=== PATIENT | female | born 1960 | race Caucasian/White ===

== ENCOUNTER 2016-05-20 20:15 | Emergency (ER) | payer BC, OTHER ==
[~2016-05-20] VITALS: Ht 157.5 cm; Wt 83.1 kg
[~2016-05-20 20:15] MED LIST: CALC500T42 PO; FEXO60TA PO; METHTAB PO; MULT-65 PO; PREV15CA20 PO; TIMO0.2525 EACH EYE
[2016-05-20 20:21] VITALS: BP 151/89; PULSE 76; RESP 16; TEMP 97.8; O2SAT 99
[2016-05-20] MEDS ORDERED: METHTAB (21:18)
[2016-05-20] MEDS ORDERED: PREV15CA15 PO (21:18)
[2016-05-20] MEDS ORDERED: TIMO5SOL EACH EYE (21:18)
[2016-05-20] MEDS ORDERED: ALLE60TA PO (21:18)
[2016-05-20] MEDS ORDERED: DOXY100C PO (22:10)
[2016-05-20] MEDS ORDERED: POLY10O EACH EYE (22:10)
--- NOTE | 2016-05-20 22:12 | PD ---
HPI Chief Complaint: Eye Problems/Injury Time Seen by Provider: 22:07 Travel History International Travel<30 days: No Contact w/Intl Traveler<30days: No Traveled to known affect area: No History of Present Illness HPI 55-year-old female presents to the emergency Department with complaint of sinus congestion 10 days and onset of purulent drainage from her left eye a few days ago. Reports facial pressure. Woke a couple days ago with her eye purulent drainage in her left eye. Denies trauma to the eyes. Denies change in vision. Eyes feel irritated but not painful. Yolanda had conjunctivitis one month ago. Woke up this morning with some drainage coming from her right eye which has worsened throughout the day today. Denies fever, chills, nausea, vomiting. Has tried [id number] medications with no relief. He thought it was maybe allergies thinks she has a sinus infection. Denies cough, ear pain. Denies sore throat. Denies chest pain, shortness of breath, abdominal pain. No one else with similar symptoms at this time. No known relieving or aggravating factors. Allergies to erythromycin and penicillin. No other modifying factors or associated signs and symptoms. PFSH Past Medical History Cancer: Yes (OVARIAN) Diminished Hearing: No GERD: Yes Glaucoma: Yes Hiatal Hernia: Yes Immunizations Current: Yes Tetanus Vaccination: > 5 Years Influenza Vaccination: Yes ?: Not Menopausal: Yes Past Surgical History Appendectomy: Yes Cholecystectomy: Yes Hysterectomy: Yes Social History Alcohol Use: No Tobacco Use: No Substance Use: No Allergies-Medications (Allergen,Severity, Reaction): Coded Allergies: Erythromycin (Verified Allergy, Intermediate, RASH, 05/20/16) Penicillin (Verified Allergy, Intermediate, RASH, 05/20/16) Reported Meds & Prescriptions Reported Meds & Active Scripts Active Doxycycline Hyclate 100 Mg Cap 100 Mg PO BID 10 Days Polytrim Opth Drops (Polymyxin/Trimethoprim Sulfate) 10,000-0.1 Unit/Ml-% Soln 1 -2 Drop EACH EYE Q6HR 7 Days Reported Timolol Opth Drops 0.25 % Soln 1 Drop EACH EYE DAILY Prevacid (Lansoprazole) 15 Mg Capdr 15 Mg PO DAILY Lulu Allergy (Fexofenadine HCl) 60 Mg Tab 60 Mg PO BID [Estratest] Review of Systems Except as stated in HPI: all other systems reviewed are Neg Physical Exam Narrative GENERAL: Well-nourished, well-developed female patient, in no acute distress SKIN: Warm and dry. HEAD: Atraumatic. Normocephalic. Tenderness on palpation to the frontal and maxillary sinuses. EYES: Pupils equal and round at 3 mm with brisk reaction. PERRLA. EOMI. Bilateral lid eversion with no foreign body noted. Bilateral eye with mild scleral erythema and mild lid edema. No orbital tenderness, erythema or cellulitis. Bilateral eye without photophobia. No consensual photophobia. No scleral icterus. Yellowish/white green drainage to bilateral eyes; left greater than right. ENT: Mucosa pink and moist. No erythema or exudates. No uvular edema. No uvular , palatal, or tonsillar deviation. Airway patent. Nasal turbinates appear normal without nasal blood, purulent drainage or septal hematoma. EARS: Bilateral pinnae and external canals appear within normal limits. Bilateral tympanic membranes without erythema, dullness or perforation. NECK: Trachea midline. No lymphadenopathy. CARDIOVASCULAR: Regular rate and rhythm. No murmur appreciated. RESPIRATORY: No accessory muscle use. Breath sounds clear and equal bilaterally. GASTROINTESTINAL: Abdomen soft, non-tender, nondistended. Positive bowel sounds. No hepato-splenomegaly, or palpable masses. No guarding. NEUROLOGICAL: Awake and alert. Oriented 3. No obvious cranial nerve deficits. Motor grossly within normal limits. Normal speech. PSYCHIATRIC: Appropriate mood and affect; insight and judgment normal. Data Data Last Documented VS Vital Signs Date Time Temp Pulse Resp B/P Pulse Ox O2 Delivery O2 Flow Rate FiO2 05/20/16 20:21 97.8 76 16 151/89 99 Room Air MDM Medical Decision Making Medical Screen Exam Complete: Yes Emergency Medical Condition: Yes Medical Record Reviewed: Yes Differential Diagnosis Sinusitis, conjunctivitis, upper respiratory infection, allergies Narrative Course 55-year-old female physical examination consistent with bilateral conjunctivitis and sinusitis. Patient is afebrile and nontoxic-appearing. Vital signs stable. Polytrim eyedrops and doxycycline prescribed for home. Patient is medically cleared and stable for discharge. Discussed reasons to return to the emergency department. Instructed patient to follow up with primary care provider. Patient agrees with treatment plan. The patients vital signs are stable and the patient is stable for outpatient follow-up and treatment. Patient discharged home, stable and in no acute distress. Diagnosis Primary Impression: Bilateral conjunctivitis Qualified Code: H10.9 - Conjunctivitis of both eyes, unspecified conjunctivitis type Additional Impression: Sinusitis Qualified Code: J01.90 - Acute sinusitis, recurrence not specified, unspecified location Referrals: Primary Care Physician Patient Instructions: Conjunctivitis (ED), General Instructions, Sinusitis (ED) Additional Instructions: Conjunctivitis is contagious Use antibiotic drops as prescribed Oral antibiotics as prescribed for sinus infection Apply warm or cool compresses to both eyes for a few minutes several times daily to minimize irritation Avoid triggers, such as allergens, that may irritate your eyes Wash your hands frequently Do not share washcloths, towels, pillows, or any other material that has touched your eyes with any other household members Follow-up with your primary care provider Return to the emergency department immediately with worsening of symptoms Med/Other Pt SpecificInfo: Prescription(s) given Scripts Doxycycline Hyclate 100 Mg [id number] Mg PO BID 10 Days Ref 0 Prov:Carmen Melton 05/20/16 Polymyxin B-Trimethoprim Opth Drops (Polytrim Opth Drops)10,000-0.1 Unit/Ml-% Soln1-2 Drop EACH EYE Q6HR 7 Days Ref 0 Prov:Carmen Melton 05/20/16 Disposition: 01 DISCHARGE HOME Condition: Stable Carmen Melton May 20, 2016 22:12
== END 2016-05-20 22:18 | disposition home or self-care (01) ==
LOC: PHED 20:15 → PHEFT 22:18
DX: H10.89 Other conjunctivitis (principal); J32.9 Chronic sinusitis, unspecified
CPT/HCPCS: 99283

== ENCOUNTER 2016-10-25 17:26 | Emergency (ER) | payer OTHER ==
[~2016-10-25] VITALS: Ht 157.5 cm; Wt 84.0 kg
[~2016-10-25 17:26] MED LIST changes: +ALLE60TA PO; -CALC500T42 PO; +DOXY100C PO; -FEXO60TA PO; +METHTAB; -METHTAB PO; -MULT-65 PO; +POLY10O EACH EYE; +PREV15CA15 PO; -PREV15CA20 PO; -TIMO0.2525 EACH EYE; +TIMO5SOL EACH EYE
[2016-10-25 17:32] VITALS: BP 159/77; PULSE 79; RESP 16; TEMP 98.2; O2SAT 99
[2016-10-25] MEDS ORDERED: TIMO0.5S30 EACH EYE (17:50)
[2016-10-25] MEDS ORDERED: METHTAB (17:50)
[2016-10-25] MEDS ORDERED: SODIUM CHLORIDE 0.9% FLUSH 10 ML FLUSH IV FLUSH PRN (18:15)
--- NOTE | 2016-10-25 18:29 | PD ---
HPI Chief Complaint: Abdominal Pain Time Seen by Provider: 18:00 Travel History International Travel<30 days: No Contact w/Intl Traveler<30days: No Traveled to known affect area: No History of Present Illness HPI 56-year-old female presents emergency department with chief complaint of right upper quadrant pain one day. Patient reports that over the last 24 hours the pain has become increasingly more constant. Localized to the right upper quadrant. Associated with mild nausea. Reproducible with palpation. She denies fever, chest pain, shortness of breath, vomiting/diarrhea. She reports that the pain "comes and goes" lasting several hours at a time. She reports she also felt "clammy" today. She reports multiple sick contacts at work have "GI bug". [facility] Past Medical History Narrative Medical Significant for GERD, ovarian CA (2000) total hysterectomy, Hx Anticoagulant Therapy: No Cancer: Yes (OVARIAN) Diabetes: No Diminished Hearing: No GERD: Yes Glaucoma: Yes Hiatal Hernia: Yes Immunizations Current: Yes Influenza Vaccination: No ?: Not Menopausal: Yes Past Surgical History Appendectomy: Yes Cholecystectomy: Yes Hysterectomy: Yes Social History Alcohol Use: No Tobacco Use: No Substance Use: No Allergies-Medications (Allergen,Severity, Reaction): Coded Allergies: Erythromycin (Verified Allergy, Intermediate, RASH, 10/25/16) Penicillin (Verified Allergy, Intermediate, RASH, 10/25/16) Reported Meds & Prescriptions Reported Meds & Active Scripts Active Reported Timolol Opth Drops 0.5 % Soln 1 Drop EACH EYE DAILY [Estratest] Prevacid (Lansoprazole) 15 Mg Capdr 15 Mg PO DAILY Lulu Allergy (Fexofenadine HCl) 60 Mg Tab 60 Mg PO BID Physical Exam Narrative GENERAL: Alert, well-appearing female, nontoxic SKIN: Focused skin assessment warm/dry. HEAD: Atraumatic. Normocephalic. EYES: Pupils equal and round. No scleral icterus. No injection or drainage. ENT: No nasal bleeding or discharge. Mucous membranes pink and moist. NECK: Trachea midline. No JVD. CARDIOVASCULAR: Regular rate and rhythm. No murmur appreciated. RESPIRATORY: No accessory muscle use. Clear to auscultation. Breath sounds equal bilaterally. GASTROINTESTINAL: Abdomen soft, mild tenderness in the right upper quadrant, nondistended, no rebound, no guarding. Hepatic and splenic margins not palpable. MUSCULOSKELETAL: No obvious deformities. No clubbing. No cyanosis. No edema. NEUROLOGICAL: Awake and alert. No obvious cranial nerve deficits. Motor grossly within normal limits. Normal speech. PSYCHIATRIC: Appropriate mood and affect; insight and judgment normal. Data Data Last Documented VS Vital Signs Date Time Temp Pulse Resp B/P Pulse Ox O2 Delivery O2 Flow Rate FiO2 10/25/16 17:32 98.2 79 16 159/77 99 Orders Complete Blood Count With Diff (10/25/16 18:09) Comprehensive Metabolic Panel (10/25/16 18:09) Lipase (10/25/16 18:09) Urinalysis - C+S If Indicated (10/25/16 18:09) Iv Access Insert/Monitor (10/25/16 18:09) Sodium Chloride 0.9% Flush (Ns Flush) (10/25/16 18:15) Electrocardiogram (10/25/16 18:09) Troponin I (10/25/16 18:09) Famotidine Inj (Pepcid Inj) (10/25/16 19:30) Al-Mag Hy-Si 40-40-4 Mg/Ml Liq (Mag-Al P (10/25/16 19:30) Lidocaine 2% Viscous (Xylocaine 2% Visco (10/25/16 19:30) Labs Laboratory Tests Test 10/25/16 10/25/16 18:15 18:30 Urine Color STRAW Urine Turbidity CLEAR Urine pH 6.5 Urine Specific [place] 1.004 Urine Protein NEG mg/dL Urine Glucose (UA) NEG mg/dL Urine Ketones NEG mg/dL Urine Occult Blood SMALL Urine Nitrite NEG Urine Bilirubin NEG Urine Leukocyte Esterase TRACE Urine RBC 0-3 /hpf Urine WBC 0-2 /hpf Urine Squamous Epithelial 0-5 /hpf Cells Microscopic Urinalysis Comment CULT NOT INDICATED White Blood Count 6.3 TH/MM3 Red Blood Count 4.73 MIL/MM3 Hemoglobin 13.5 GM/DL Hematocrit 40.0 % Mean Corpuscular Volume 84.6 FL Mean Corpuscular Hemoglobin 28.6 PG Mean Corpuscular Hemoglobin 33.8 % Concent Red Cell Distribution Width 13.3 % Platelet Count 355 TH/MM3 Mean Platelet Volume 7.6 FL Neutrophils (%) (Auto) 59.1 % Lymphocytes (%) (Auto) 30.6 % Monocytes (%) (Auto) 7.4 % Eosinophils (%) (Auto) 2.3 % Basophils (%) (Auto) 0.6 % Neutrophils # (Auto) 3.8 TH/MM3 Lymphocytes # (Auto) 1.9 TH/MM3 Monocytes # (Auto) 0.5 TH/MM3 Eosinophils # (Auto) 0.1 TH/MM3 Basophils # (Auto) 0.0 TH/MM3 CBC Comment DIFF FINAL Differential Comment Sodium Level 142 MEQ/L Potassium Level 3.7 MEQ/L Chloride Level 106 MEQ/L Carbon Dioxide Level 30.9 MEQ/L Anion Gap 5 MEQ/L Blood Urea Nitrogen 8 MG/DL Creatinine 0.84 MG/DL Estimat Glomerular Filtration 70 ML/MIN Rate Random Glucose 85 MG/DL Calcium Level 8.7 MG/DL Total Bilirubin 0.5 MG/DL Aspartate Amino Transf 20 U/L (AST/SGOT) Alanine Aminotransferase 33 U/L (ALT/SGPT) Alkaline Phosphatase 111 U/L Troponin I LESS THAN 0.02 NG/ML Total Protein 7.8 GM/DL Albumin 4.0 GM/DL Lipase 183 U/L [facility] Medical Decision Making Medical Screen Exam Complete: Yes Emergency Medical Condition: Yes Medical Record Reviewed: Yes Differential Diagnosis Gastritis, gastroenteritis, GERD, hepatitis Narrative Course 56-year-old female presents emergency department for right upper quadrant pain 1 day. Patient reports the pain has become increasingly more frequent over the last 24 hours and is now associated with mild nausea and one episode of diarrhea. The pain is reproducible to palpation to the right upper quadrant. The abdomen is soft no guarding no rebound tenderness. IV access established, labs pending, EKG obtained. EKG: Sinus rhythm no ST or T-wave changes. CBC: Unremarkable CMP: Unremarkable During the course of patients stay in emergency department she had one episodes of diarrhea. Her labs are unremarkable. Patient is nontoxic appearing. Given her exposure to coworkers with similar GI complaints this is consistent with gastroenteritis. 1934 patient reassessed, all diagnostics test reviewed with patient. Patient reports improvement. Patient has no pain currently. Abdomen soft. She agrees to follow up with her primary doctor in 2 days for recheck. Return precautions discussed. Patient is in agreement to plan and ready for discharge. Diagnosis Primary Impression: Acute gastroenteritis Referrals: Primary Care Physician Patient Instructions: Gastroenteritis (ED), General Instructions Additional Instructions: Eat a bland diet and drink plenty of fluids. Follow up with your primary doctor in 2 days. Return to the emergency department he develop new or worsening symptoms. Disposition: 01 DISCHARGE HOME Condition: Stable Hodan Foy Oct 25, 2016 18:29
[2016-10-25 18:30] LABS: BLOOD, URINE SMALL (NEG); GLUCOSE,URINE NEG (NEG); KETONE, URINE NEG (NEG); NITRITE,URINE NEG (NEG); PH, URINE 6.5 (5.0-8.5)
[2016-10-25 18:36] LABS: RBC, URINE 0-3 /hpf (0-3); URINE COLOR STRAW (YELLW/STRAW); WBC, URINE 0-2 /hpf (0-5)
[2016-10-25 18:37] LABS: COMMENT (UR) CULT NOT INDICATED; CULTURE IF INDICATED CULT NOT INDICATED; SQUAMOUS EPITHELIAL CELL URINE 0-5 /hpf (0-5)
[2016-10-25 18:47] LABS: AUTOMATED NEUTROPHIL # 3.8 TH/MM3 (1.8-7.7); BASOPHIL % 0.6 % (0.0-2.0); EOSINOPHIL # 0.1 TH/MM3 (0-0.4); EOSINOPHIL % 2.3 % (0.0-4.0); LYMPH % 30.6 % (9.0-44.0); LYMPHOCYTE # 1.9 TH/MM3 (1.0-4.8); MEAN CELL VOLUME 84.6 FL (80.0-100.0); MEAN CORPUSCULAR HEMOGLOBIN 28.6 PG (27.0-34.0); MEAN CORPUSCULAR HGB CONC 33.8 % (32.0-36.0); MONO % 7.4 % (0.0-8.0); NEUT % 59.1 % (16.0-70.0); PLATELET COUNT 355 TH/MM3 (150-450); RED BLOOD COUNT 4.73 MIL/MM3 (4.00-5.30); RED CELL DISTRIBUTION WIDTH 13.3 % (11.6-17.2); WHITE BLOOD COUNT 6.3 TH/MM3 (4.0-11.0)
[2016-10-25 18:49] LABS: HEMO FLAGS DIFF FINAL
[2016-10-25 18:58] LABS: CHLORIDE 106 MEQ/L (98-107); POTASSIUM 3.7 MEQ/L (3.5-5.1); SODIUM (NA) 142 MEQ/L (136-145)
[2016-10-25 19:02] LABS: ANION GAP 5 MEQ/L (5-15); BICARBONATE 30.9 MEQ/L (21.0-32.0); BLOOD UREA NITROGEN 8 MG/DL (7-18)
[2016-10-25 19:05] LABS: ALT (GPT) 33 U/L (10-53); AST (GOT) 20 U/L (15-37); GLOMERULAR FILTRATION RATE 70 ML/MIN (>89)
[2016-10-25 19:06] LABS: TOTAL BILIRUBIN ADULT 0.5 MG/DL (0.2-1.0)
[2016-10-25 19:08] LABS: ALKALINE PHOSPHATASE 111 U/L (45-117)
[2016-10-25] MEDS ORDERED: ALUMINUM/MAGNESIUM/SIMETH 30 ML CUP PO ONE (19:30)
[2016-10-25] MEDS ORDERED: LIDOCAINE VISCOUS 2% SOLN 15 ML UDC PO ONE (19:30)
[2016-10-25] MEDS ORDERED: FAMOTIDINE 20 MG/2 ML VIAL IV PUSH ONE (19:30)
--- NOTE | 2016-10-26 17:45 | EKG ---
Date Performed: 10/25/2016 Time Performed: 18:32:46 PTAGE: 56 years EKG: Sinus rhythm with 1st degree A-V block Poor R wave progression - probable normal variant Abnormal ECG NO PREVIOUS TRACING DOCTOR: Fili Jones Interpretating Date/Time 10/26/2016 17:44:23
== END 2016-10-25 20:07 | disposition home or self-care (01) ==
LOC: PHEFT 17:26
DX: K52.9 Noninfective gastroenteritis and colitis, unspecified (principal)
CPT/HCPCS: 80053; 81001; 83690; 84484; 85025; 93005; 96374

== ENCOUNTER 2016-10-26 11:41 | Emergency (ER) | payer OTHER ==
[~2016-10-26] VITALS: Ht 157.5 cm; Wt 83.0 kg
[~2016-10-26 11:41] MED LIST changes: -DOXY100C PO; -POLY10O EACH EYE; +TIMO0.5S30 EACH EYE; -TIMO5SOL EACH EYE
[2016-10-26 11:46] VITALS: BP 177/93; PULSE 70; RESP 16; TEMP 98.2; O2SAT 99
[2016-10-26] MEDS ORDERED: KETOROLAC TROMETHAMINE 30 MG/ML (IVP) VIAL IM ONE (12:15)
--- NOTE | 2016-10-26 12:54 | PD ---
HPI Chief Complaint: Abdominal Pain Time Seen by Provider: 11:55 Travel History International Travel<30 days: No Contact w/Intl Traveler<30days: No Traveled to known affect area: No History of Present Illness HPI 56-year-old female presents the emergency department after repeat ED visit yesterday for persistent abdominal pain. Patient seen in our emergency department yesterday with complaints of right sided abdominal pain, primarily right upper quadrant. She had some associated nausea, loose stools with multiple sick contacts at work with similar symptoms. She's had a previous CRISTIAN/ BSO due to ovarian cancer in her 30s, appendectomy and cholecystectomy. Her laboratory workup yesterday was unremarkable and patient felt improved after GI cocktail. Presumptive GERD versus reflux versus gastroenteritis and patient was discharged home. Patient notes that she's had persistent right sided abdominal pain and presents to the emergency department today for concerns primarily regarding recurrent ovarian cancer. Patient states that yesterday during her ED visit she discussed CT scan of the abdomen and pelvis with provider but ultimately decided not to have this performed due to radiation risks. Given her persistent symptoms today patient presents back to the emergency department requesting CT scan, where she may have recurrent ovarian cancer. The pain is now right mid abdomen, crampy. She continues to have loose stools but no devaughn diarrhea. No urinary symptoms. Her workup from yesterday's ER visit was obtained showing normal CBC, CMP, lipase, urinalysis. PFSH Past Medical History Hx Anticoagulant Therapy: No Cancer: Yes (OVARIAN) Diabetes: No Diminished Hearing: No GERD: Yes Glaucoma: Yes Hiatal Hernia: Yes Immunizations Current: Yes Influenza Vaccination: No ?: Not Menopausal: Yes Past Surgical History Appendectomy: Yes Cholecystectomy: Yes Hysterectomy: Yes Social History Alcohol Use: No Tobacco Use: No Substance Use: No Allergies-Medications (Allergen,Severity, Reaction): Coded Allergies: Erythromycin (Verified Allergy, Intermediate, RASH, 10/26/16) Penicillin (Verified Allergy, Intermediate, RASH, 10/26/16) Reported Meds & Prescriptions Reported Meds & Active Scripts Active Reported Timolol Opth Drops 0.5 % Soln 1 Drop EACH EYE DAILY [Estratest] Prevacid (Lansoprazole) 15 Mg Capdr 15 Mg PO DAILY Lulu Allergy (Fexofenadine HCl) 60 Mg Tab 60 Mg PO BID Review of Systems Except as stated in HPI: all other systems reviewed are Neg Physical Exam Narrative GENERAL: Well-appearing female in no acute distress SKIN: Focused skin assessment warm/dry. HEAD: Normocephalic. EYES: No scleral icterus. No injection or drainage. ENT: . Mucous membranes pink and moist. NECK: Supple CARDIOVASCULAR: Regular rate and rhythm. RESPIRATORY: No accessory muscle use. GASTROINTESTINAL: Abdomen soft, nondistended. Multiple old surgical scars. Minimal right mid tenderness to palpation of the abdomen. No pelvic tenderness , fullness MUSCULOSKELETAL: Normal gait NEUROLOGICAL: Awake and alert. Normal speech. PSYCHIATRIC: Appropriate mood and affect; insight and judgment normal. Data Data Last Documented VS Vital Signs Date Time Temp Pulse Resp B/P Pulse Ox O2 Delivery O2 Flow Rate FiO2 10/26/16 12:09 16 10/26/16 11:46 98.2 70 177/[address] Abd/Pel W/O Iv Contrast (10/26/16 12:03) Ketorolac Inj (Toradol Inj) (10/26/16 12:15) MDM Medical Decision Making Medical Screen Exam Complete: Yes Emergency Medical Condition: Yes Medical Record Reviewed: Yes Differential Diagnosis 56-year-old female with history of ovarian cancer status post CRISTIAN/BSO, appendectomy, cholecystectomy here with 2-3 days of loose stools, nausea and right sided abdominal discomfort. She's had laboratory workup just yesterday showing no evidence of urinary tract infection, hematuria to suggest ureterolithiasis, normal LFTs/lipase, renal function. My suspicion remains that this is likely a viral gastroenteritis but given her repeat ED visit and ovarian cancer history do not think that a CT of the abdomen and pelvis is unreasonable. Narrative Course Laboratory results from yesterday reviewed. Patient given dose of Toradol. CT of the abdomen and pelvis showed mild to moderate colonic diverticulosis without diverticulitis. 1.7 x 1.1 cm left adrenal adenoma. No acute abnormalities. Patient reassured and discharged home. Diagnosis Primary Impression: Right sided abdominal pain Referrals: Primary Care Physician as needed Additional Instructions: Laboratory workup including CBC, CMP, lipase and urinalysis obtained yesterday were normal. CT scan of the abdomen and pelvis today shows no acute changes, evidence of recurrent ovarian cancer. Med/Other Pt SpecificInfo: No Change to Meds Disposition: DISCHARGE HOME Condition: Stable Comfort Schofield MD Oct 26, 2016 12:54
--- NOTE | 2016-10-26 13:01 | RADHPO ---
EXAM DATE/TIME: 10/26/2016 12:29 [facility] COMPARISON: No previous studies available for comparison. INDICATIONS : Right abdominal pain x 3 days. Nausea. ORAL CONTRAST: No oral contrast ingested. RADIATION DOSE: 17.41 CTDIvol (mGy) MEDICAL HISTORY : Gastroesophageal reflux disease. Hernia, hiatal. Carcinoma, ovarian. SURGICAL HISTORY : Appendectomy. Cholecystectomy.Hysterectomy. ENCOUNTER: Initial ACUITY: 3 days PAIN SCALE: 9/10 LOCATION: Right abdomen TECHNIQUE: Volumetric scanning of the abdomen and pelvis was performed. Using automated exposure control and ad justment of the mA and/or kV according to patient size, radiation dose was kept as low as reasonably achievable to obtain optimal diagnostic quality images. FINDINGS: LOWER LUNGS: The visualized lower lungs are clear. LIVER: Homogeneous density without lesion. There is no dilation of the biliary tree. Gallbladder is surgica lly absent. SPLEEN: Normal size without lesion. PANCREAS: Within normal limits. KIDNEYS: Kidneys are symmetrical in size without evidence for radiopaque renal calculi or hydronephrosis. No s ignificant contour deforming abnormality. ADRENAL GLANDS: 1.7 x 1.1 cm left adrenal mass which measures low in density consistent with adrenal adenoma. Right a drenal gland is normal in appearance. VASCULAR: Moderate atherosclerotic calcifications of the abdominal aorta and proximal iliac arteries. BOWEL/MESENTERY: Status post appendectomy. Mild to moderate sigmoid and descending colon diverticulosis. No significan t inflammatory change to suggest diverticulitis. There is also scattered diverticula in the descendin g colon again without significant inflammatory change to suggest diverticulitis. Bowel is otherwise u nremarkable without evidence for obstruction or free air. ABDOMINAL WALL: Laxity of the maday-umbilical abdominal wall. No definite hernia. RETROPERITONEUM: Surgical clips near the aortic bifurcation region. BLADDER: No wall thickening or mass. REPRODUCTIVE: Status post hysterectomy. INGUINAL: There is no lymphadenopathy or hernia. MUSCULOSKELETAL: No abnormal lytic or blastic bony lesions. CONCLUSION: 1. Mild to moderate colonic diverticulosis without significant inflammatory change to suggest diverti culitis. 2. 1.7 x 1.1 cm left adrenal adenoma. 3. Status post appendectomy, cholecystectomy, and hysterectomy. 4. No definitive findings to explain patient's symptoms. Jcarlos Cool MD on October 26, 2016 at 12:44 Board Certified Radiologist. This report was verified electronically.
== END 2016-10-26 13:17 | disposition home or self-care (01) ==
LOC: PHED 11:41
DX: R10.9 Unspecified abdominal pain (principal); K21.9 Gastro-esophageal reflux disease without esophagitis; H40.9 Unspecified glaucoma
CPT/HCPCS: 74176; 96372; 99285; J1885

== ENCOUNTER 2016-10-27 21:30 | Emergency (ER) | payer OTHER ==
[2016-10-27 21:32] VITALS: BP 194/82; PULSE 69; RESP 16; TEMP 98; O2SAT 100
[2016-10-27] MEDS ORDERED: SODIUM CHLOR 0.9% 1000 ML INJ 1,000 ML IV SCH (22:42)
[2016-10-27] MEDS: ALUMINUM/MAGNESIUM/SIMETH 30 ML CUP PO ONE ×2 (22:45→23:07)
[2016-10-27] MEDS ORDERED: DICYCLOMINE HCL 10 MG CAP PO ONE (22:45)
[2016-10-27] MEDS ORDERED: SODIUM CHLORIDE 0.9% FLUSH 10 ML FLUSH IV FLUSH PRN (22:45)
[2016-10-27] MEDS: LIDOCAINE VISCOUS 2% SOLN 15 ML UDC PO ONE ×2 (22:45→23:07)
[2016-10-27] MEDS ORDERED: PANTOPRAZOLE SODIUM 40 MG VIAL IVP ONE (22:45)
[2016-10-27 23:03] LABS: AUTOMATED NEUTROPHIL # 4.1 TH/MM3 (1.8-7.7); BASOPHIL % 0.6 % (0.0-2.0); EOSINOPHIL # 0.1 TH/MM3 (0-0.4); EOSINOPHIL % 1.6 % (0.0-4.0); HEMATOCRIT 38.4 % (35.0-46.0); HEMO FLAGS DIFF FINAL; LYMPH % 25.5 % (9.0-44.0); LYMPHOCYTE # 1.6 TH/MM3 (1.0-4.8); MEAN CELL VOLUME 83.5 FL (80.0-100.0); MEAN CORPUSCULAR HEMOGLOBIN 28.7 PG (27.0-34.0); MEAN CORPUSCULAR HGB CONC 34.4 % (32.0-36.0); NEUT % 64.3 % (16.0-70.0); PLATELET COUNT 315 TH/MM3 (150-450); RED CELL DISTRIBUTION WIDTH 13.8 % (11.6-17.2); WHITE BLOOD COUNT 6.3 TH/MM3 (4.0-11.0)
[2016-10-27 23:08] VITALS: RESP 16
[2016-10-27] MEDS ORDERED: DIATRIZOATE MEGLUM/DIATRIZOATE SOD 9 ML CUP ONE (23:11)
[2016-10-27 23:21] LABS: APTT (PATIENT) 28.4 SEC (24.3-30.1); PROTHROMBIN TIME - PATIENT 10.5 SEC (9.8-11.6)
[2016-10-27 23:24] LABS: BLOOD, URINE TRACE (NEG); GLUCOSE,URINE NEG (NEG); KETONE, URINE NEG (NEG); NITRITE,URINE NEG (NEG); PH, URINE 6.5 (5.0-8.5); SQUAMOUS EPITHELIAL CELL URINE 3 /hpf (0-5); URINE COLOR LIGHT-YELLOW (YELLW/STRAW)
[2016-10-27 23:25] LABS: COMMENT (UR) CULT NOT INDICATED; CULTURE IF INDICATED CULT NOT INDICATED
[2016-10-27 23:29] LABS: BICARBONATE 29.8 MEQ/L (21.0-32.0); POTASSIUM 3.7 MEQ/L (3.5-5.1)
[2016-10-27 23:31] LABS: INDIRECT BILIRUBIN 0.6 MG/DL (0.0-0.8); TOTAL BILIRUBIN ADULT 0.7 MG/DL (0.2-1.0)
[2016-10-28] MEDS ORDERED: IOHEXOL 350 MG/ML 10 ML VIAL (for RAD DIAG) IV ONE (00:53)
--- NOTE | 2016-10-28 01:26 | RADRPT ---
EXAM DATE/TIME: 10/28/2016 00:50 [facility] COMPARISON: No previous studies available for comparison. INDICATIONS : Abdominal pain x3 days. IV CONTRAST: 64 cc Omnipaque 350 (iohexol) IV ORAL CONTRAST: Prescribed oral contrast ingested. RADIATION DOSE: 10.16 CTDIvol (mGy) MEDICAL HISTORY : Gastroesophageal reflux disease. Hernia, hiatal. Ovarian cancer. SURGICAL HISTORY : Hysterectomy. Appendectomy.Cholecystectomy. ENCOUNTER: Initial ACUITY: 3 days PAIN SCALE: 10/10 LOCATION: Right lower quadrant TECHNIQUE: Volumetric scanning of the abdomen and pelvis was performed. Using automated exposure control and ad justment of the mA and/or kV according to patient size, radiation dose was kept as low as reasonably achievable to obtain optimal diagnostic quality images. FINDINGS: LOWER LUNGS: The visualized lower lungs are clear. LIVER: Homogeneous density without lesion. There is no dilation of the biliary tree. Post cholecystectomy. SPLEEN: Normal size without lesion. PANCREAS: Within normal limits. KIDNEYS: Normal in size and shape. There is no mass, stone or hydronephrosis. ADRENAL GLANDS: Within normal limits. VASCULAR: There is no aortic aneurysm. BOWEL/MESENTERY: The stomach, small bowel, and colon demonstrate no acute abnormality. There is no free intraperitone al air or fluid. ABDOMINAL WALL: Within normal limits. RETROPERITONEUM: There is no lymphadenopathy. BLADDER: No wall thickening or mass. REPRODUCTIVE: Within normal limits. INGUINAL: There is no lymphadenopathy or hernia. MUSCULOSKELETAL: Within normal limits for patient age. CONCLUSION: 1. Unremarkable bowel gas pattern. 2. Status post cholecystectomy. Misael Logan MD on October 28, 2016 at 1:23 Board Certified Radiologist. This report was verified electronically.
[2016-10-28 01:27] VITALS: BP 180/83; PULSE 62; RESP 16; O2SAT 98
[2016-10-28] MEDS ORDERED: PROT40TA PO (01:57)
[2016-10-28] MEDS ORDERED: TRAM50TA PO (01:57)
[2016-10-28] MEDS ORDERED: DICY10 PO (01:57)
--- NOTE | 2016-10-28 01:57 | PD ---
HPI Chief Complaint: Abdominal Pain Time Seen by Provider: 22:22 Travel History International Travel<30 days: No Contact w/Intl Traveler<30days: No Traveled to known affect area: No History of Present Illness HPI Patient is a 56-year-old female who comes in complaining of abdominal pain. She has had the pain for about the past for 5 days. This is her third visit for the pain. She says the pain is in the center of her abdomen and goes through to her back. She denies any nausea or vomiting. She did have diarrhea once the past few days. She says her bowel movements have been normal for her, which is usually just once a week. She denies fever or chills. She says the pain has been getting worse. She cannot relate the pain to food. She does have a history of GERD and has been taking Prevacid. PFSH Past Medical History Hx Anticoagulant Therapy: No Cancer: Yes (OVARIAN) Diabetes: No Diminished Hearing: No GERD: Yes Glaucoma: Yes Hiatal Hernia: Yes Immunizations Current: Yes ?: Not Menopausal: Yes Past Surgical History Appendectomy: Yes Cholecystectomy: Yes Hysterectomy: Yes Social History Alcohol Use: No Tobacco Use: No Substance Use: No Allergies-Medications (Allergen,Severity, Reaction): Coded Allergies: Erythromycin (Verified Allergy, Intermediate, RASH, 10/27/16) Penicillin (Verified Allergy, Intermediate, RASH, 10/27/16) Reported Meds & Prescriptions Reported Meds & Active Scripts Active Reported Timolol Opth Drops 0.5 % Soln 1 Drop EACH EYE DAILY [Estratest] Prevacid (Lansoprazole) 15 Mg Capdr 15 Mg PO DAILY Lulu Allergy (Fexofenadine HCl) 60 Mg Tab 60 Mg PO BID Review of Systems Except as stated in HPI: all other systems reviewed are Neg General / Constitutional: No: Fever, Chills HENT: No: Headaches, Lightheadedness Cardiovascular: No: Chest Pain or Discomfort Respiratory: No: Shortness of Breath Gastrointestinal: Positive: Abdominal Pain, No: Nausea, Vomiting Genitourinary: No: Dysuria Skin: No Rash, No Change in Pigmentation Neurologic: No: Weakness, Dizziness Physical Exam Narrative GENERAL: Awake and alert, in no acute distress. SKIN: Focused skin assessment warm/dry. HEAD: Atraumatic. Normocephalic. EYES: Pupils equal and round. No scleral icterus. ENT: Mucous membranes pink and moist. NECK: Trachea midline. No JVD. CARDIOVASCULAR: Regular rate and rhythm. No murmur appreciated. RESPIRATORY: No accessory muscle use. Clear to auscultation. Breath sounds equal bilaterally. GASTROINTESTINAL: Abdomen soft, nondistended. Mild tenderness to palpation of the right upper quadrant and epigastric area. No rebound or guarding. MUSCULOSKELETAL: No obvious deformities. No clubbing. No cyanosis. No edema. NEUROLOGICAL: Awake and alert. No obvious cranial nerve deficits. Motor grossly within normal limits. Normal speech. PSYCHIATRIC: Appropriate mood and affect; insight and judgment normal. Data Data Last Documented VS Vital Signs Date Time Temp Pulse Resp B/P Pulse Ox O2 Delivery O2 Flow Rate FiO2 10/28/16 01:27 62 16 180/83 98 Room Air 10/27/16 21:32 98.0 Orders Basic Metabolic Panel (Bmp) (10/27/16 22:42) Complete Blood Count With Diff (10/27/16 22:42) Lipase (10/27/16 22:42) Lactic Acid (10/27/16 22:42) Prothrombin Time / Inr (Pt) (10/27/16 22:42) Act Partial Throm Time (Ptt) (10/27/16 22:42) Urinalysis - C+S If Indicated (10/27/16 22:42) Ua Includes Microscopic (10/27/16 22:42) Iv Access Insert/Monitor (10/27/16 22:42) Ecg Monitoring (10/27/16 22:42) Oximetry (10/27/16 22:42) Pantoprazole Inj (Protonix Inj) (10/27/16 22:45) Sodium Chlor 0.9% 1000 Ml Inj (Ns 1000 M (10/27/16 22:42) Sodium Chloride 0.9% Flush (Ns Flush) (10/27/16 22:45) Electrocardiogram (10/27/16 22:42) Dicyclomine (Bentyl) (10/27/16 22:45) Al-Mag Hy-Si 40-40-4 Mg/Ml Liq (Mag-Al P (10/27/16 22:45) Lidocaine 2% Viscous (Xylocaine 2% Visco (10/27/16 22:45) Hepatic Functional Panel (10/27/16 22:42) Oral Contrast - Adult (10/27/16 23:06) Diatrizoate Liq (Md Elizabteh Santiagoq) (10/27/16 23:11) Ct Abd/Pel W Iv Contrast(Rout) (10/28/16 22:42) Iohexol 350 Inj (Omnipaque 350 Inj) (10/28/16 00:53) Labs Laboratory Tests Test 10/27/16 22:50 White Blood Count 6.3 TH/MM3 Red Blood Count 4.60 MIL/MM3 Hemoglobin 13.2 GM/DL Hematocrit 38.4 % Mean Corpuscular Volume 83.5 FL Mean Corpuscular Hemoglobin 28.7 PG Mean Corpuscular Hemoglobin 34.4 % Concent Red Cell Distribution Width 13.8 % Platelet Count 315 TH/MM3 Mean Platelet Volume 7.6 FL Neutrophils (%) (Auto) 64.3 % Lymphocytes (%) (Auto) 25.5 % Monocytes (%) (Auto) 8.0 % Eosinophils (%) (Auto) 1.6 % Basophils (%) (Auto) 0.6 % Neutrophils # (Auto) 4.1 TH/MM3 Lymphocytes # (Auto) 1.6 TH/MM3 Monocytes # (Auto) 0.5 TH/MM3 Eosinophils # (Auto) 0.1 TH/MM3 Basophils # (Auto) 0.0 TH/MM3 CBC Comment DIFF FINAL Differential Comment Prothrombin Time 10.5 SEC Prothromb Time International 1.0 RATIO Ratio Activated Partial 28.4 SEC Thromboplast Time Urine Color LIGHT-YELLOW Urine Turbidity CLEAR Urine pH 6.5 Urine Specific [place] 1.003 Urine Protein NEG mg/dL Urine Glucose (UA) NEG mg/dL Urine Ketones NEG mg/dL Urine Occult Blood TRACE Urine Nitrite NEG Urine Bilirubin NEG Urine Urobilinogen LESS THAN 2.0 MG/DL Urine Leukocyte Esterase MOD Urine RBC 3 /hpf Urine WBC 7 /hpf Urine Squamous Epithelial 3 /hpf Cells Microscopic Urinalysis Comment CULT NOT INDICATED Sodium Level 140 MEQ/L Potassium Level 3.7 MEQ/L Chloride Level 103 MEQ/L Carbon Dioxide Level 29.8 MEQ/L Anion Gap 7 MEQ/L Blood Urea Nitrogen 10 MG/DL Creatinine 0.75 MG/DL Estimat Glomerular Filtration 80 ML/MIN Rate Random Glucose 104 MG/DL Lactic Acid Level 0.9 mmol/L Calcium Level 8.7 MG/DL Total Bilirubin 0.7 MG/DL Direct Bilirubin 0.1 MG/DL Indirect Bilirubin 0.6 MG/DL Aspartate Amino Transf 22 U/L (AST/SGOT) Alanine Aminotransferase 32 U/L (ALT/SGPT) Alkaline Phosphatase 106 U/L Total Protein 7.5 GM/DL Albumin 4.2 GM/DL Lipase 152 U/L MDM Medical Decision Making Medical Screen Exam Complete: Yes Emergency Medical Condition: Yes Medical Record Reviewed: Yes Interpretation(s) ECG shows normal sinus rhythm with first-degree block, no ST elevation or depression. Differential Diagnosis GERD versus gastritis versus pancreatitis versus obstruction versus diverticulitis Narrative Course Patient is a 56-year-old female here for her third visit for abdominal pain. Exam shows tenderness to right upper quadrant and epigastric area. IV established, labs sent. Labs show no acute abnormalities. CT abdomen and pelvis repeated with oral and IV contrast, shows no acute abnormalities. Patient given GI cocktail and reports feeling better. She'll be discharged with prescription for Protonix. Advised to avoid caffeine, tomatoes, peppers, spicy foods, NSAIDs. Given a prescription for a few pain pills to take as needed for severe pain. She is advised follow-up with gastroenterology. Advised to return to the ED as needed for any worsening symptoms. Diagnosis Primary Impression: Gastritis Qualified Code: K29.00 - Acute gastritis without hemorrhage, unspecified gastritis type Patient Instructions: Gastritis (ED), General Instructions Additional Instructions: Avoid spicy foods, tomatoes, caffeine, peppers, tablet, NSAIDs. Try the new medication for acid reflux. You can also take Maalox. Bentyl can be taken as needed for spasm-like pain in her abdomen. Take the tramadol as needed for severe pain. Follow-up with gastroenterology. Return to the emergency department as needed for any worsening pain. Scripts Tramadol 50 Mg Tab50 Mg PO Q6H PRN (PAIN) #10 TAB Ref 0 Prov:Ramona Del Valle MD 10/28/16 Dicyclomine (Bentyl)10 Mg Cap10 Mg PO TID PRN (Bowel Management) #20 CAP Ref 0 Prov:Ramona Del Valle MD 10/28/16 Pantoprazole (Protonix)40 Mg Tab40 Mg PO DAILY #30 TAB Ref 0 Prov:Ramona Del Valle MD 10/28/16 Disposition: 01 DISCHARGE HOME Condition: Stable Ramona Del Valle MD Oct 28, 2016 01:57
--- NOTE | 2016-10-28 09:35 | EKG ---
Date Performed: 10/27/2016 Time Performed: 23:06:46 PTAGE: 56 years EKG: Sinus rhythm WITH FIRST DEGREE AV BLOCK POSSIBLE LEFT ATRIAL ENLARGEMENT POSSIBLE ANTERIOR MYOCARDIAL INFARCTION ABNORMAL ECG NO PREVIOUS TRACING DOCTOR: Villa Dickinson Interpretating Date/Time 10/28/2016 09:30:42
== END 2016-10-28 02:59 | disposition home or self-care (01) ==
LOC: NEPC 21:30
DX: K29.70 Gastritis, unspecified, without bleeding (principal); R94.31 Abnormal electrocardiogram [ECG] [EKG]
CPT/HCPCS: 74177; 80048; 80076; 81001; 83605; 83690; 85025; 85610; 85730; 93005; 96374; 99285; C9113; J7030; Q9963; Q9967